=== PATIENT | male | born 1965 | race African-American/Black ===

== ENCOUNTER 2016-12-23 16:24 | Emergency (ER) | payer OTHER ==
[~2016-12-23] VITALS: Wt 113.4 kg
[~2016-12-23 16:24] MED LIST: AMOXICILLIN500 MG PO
[2016-12-23] MEDS ORDERED: PROPRANOLOL HYD80 MG PO (16:35)
[2016-12-23] MEDS ORDERED: NAPROXEN500 MG PO (16:35)
== END 2016-12-23 17:16 | disposition home or self-care (01) ==
LOC: ED 16:24
DX: T26.11XA Burn of cornea and conjunctival sac, right eye, initial encounter (principal); T26.12XA Burn of cornea and conjunctival sac, left eye, initial encounter; F17.200 Nicotine dependence, unspecified, uncomplicated; Z88.6 Allergy status to analgesic agent; X10.2XXA Contact with fats and cooking oils, initial encounter; Y93.G3 Activity, cooking and baking; Y92.9 Unspecified place or not applicable; Y99.9 Unspecified external cause status

== ENCOUNTER 2019-02-01 07:19 | Emergency (ER) | payer OTHER ==
[~2019-02-01] VITALS: Ht 182.8 cm; Wt 104.3 kg
[~2019-02-01 07:19] MED LIST changes: +NAPROXEN500 MG PO; +PROPRANOLOL HYD80 MG PO
[2019-02-01] MEDS ORDERED: LISINOPRIL20 MG PO (07:30)
[2019-02-01] MEDS ORDERED: TYLENOL325 M1 PO (09:17)
[2019-02-01] MEDS ORDERED: BACITRACIN 500U30 GM OPH (09:17)
[2019-02-01] MEDS ORDERED: NAPROSYN500 MG PO (09:17)
[2019-02-01] MEDS ORDERED: CEPHALEXIN500 M1 PO (09:17)
== END 2019-02-01 10:32 | disposition home or self-care (01) ==
LOC: ED 07:19
DX: S61.412A Laceration without foreign body of left hand, initial encounter (principal); S61.411A Laceration without foreign body of right hand, initial encounter; Z88.6 Allergy status to analgesic agent; Z79.899 Other long term (current) drug therapy; W26.8XXA Contact with other sharp object(s), not elsewhere classified, initial encounter; Y93.89 Activity, other specified; Y92.69 Other specified industrial and construction area as the place of occurrence of the external cause; Y99.8 Other external cause status

== ENCOUNTER 2019-07-26 21:27 | Emergency (ER) | payer SELFPAY ==
[~2019-07-26] VITALS: Ht 177.8 cm; Wt 113.4 kg
[~2019-07-26 21:27] MED LIST changes: +BACITRACIN 500U30 GM OPH; +CEPHALEXIN500 M1 PO; +LISINOPRIL20 MG PO; +NAPROSYN500 MG PO; +TYLENOL325 M1 PO
[2019-07-26 21:44] LABS: BASO # 0.1 10*3/uL (0.0-0.1); BASO % 0.5 % (0.0-1.0); EOS % 0.4 % (1.0-4.0); HEMATOCRIT 45.4 % (42.0-52.0); LYMPH # 1.5 10*3/uL (1.3-4.4); LYMPH % 14.3 % (27.0-41.0); MEAN CELL VOLUME 88.5 fl (80.0-94.0); MEAN CORPUSCULAR HGB 29.2 pg (27.0-31.0); MEAN PLATELET VOLUME 9.8 fl (9.6-12.3); MONO # 0.8 10*3/uL (0.1-1.0); NEUT # 7.9 10*3/uL (2.3-7.9); NEUT % 76.5 % (47.0-73.0); PLATELET COUNT AUTOMATED 272 10*3/uL (130-400); RED BLOOD COUNT 5.13 10*6/uL (4.50-5.90); RED CELL DISTRI WIDTH 13.9 % (0-14.5); WHITE BLOOD COUNT 10.3 10*3/uL (4.8-10.8)
[2019-07-26 22:03] LABS: ALBUMIN 3.8 gm/dl (3.1-4.5); ALKALINE PHOSPHATASE 79 U/L (45-117); BUN 17 mg/dl (7-24); CHLORIDE 109 mmol/L (98-107); CREATININE 1.08 mg/dL (0.70-1.30); POTASSIUM 3.7 mmol/L (3.5-5.1); SGOT/AST 33 IU/L (3-35); SGPT/ALT 33 U/L (12-78); SODIUM 140 mmol/L (136-145); TOTAL PROTEIN 8.1 gm/dL (6.4-8.2)
[2019-07-26 22:06] LABS: ACT PARTIAL THROMBO TIME 26.2 SECONDS (20.0-32.1); INTERNATIONAL NORM RATIO 0.9 (2.0-3.5)
[2019-07-26 22:07] LABS: TROPONIN I < 0.015 ng/ml (<0.045)
== END 2019-07-27 00:45 ==
LOC: ED 21:27
PROVIDERS: Emergency Medicine Emergency Medical Services
DX: R07.9 Chest pain, unspecified (principal); R20.0 Anesthesia of skin; I25.2 Old myocardial infarction; I10 Essential (primary) hypertension; F17.200 Nicotine dependence, unspecified, uncomplicated; Z88.6 Allergy status to analgesic agent; Z79.899 Other long term (current) drug therapy

== ENCOUNTER 2021-02-11 13:33 | Emergency (ER) | payer OTHER ==
[~2021-02-11] VITALS: Wt 106.1 kg
[2021-02-11] MEDS ORDERED: CYCLOBENZAPRINE5 M3 PO ×2 (15:04)
[2021-02-11] MEDS ORDERED: PREDNISONE50 MG PO ×2 (15:04)
== END 2021-02-11 15:33 | disposition home or self-care (01) ==
LOC: ED 13:33
DX: M54.5 Low back pain (principal); M25.551 Pain in right hip; M25.552 Pain in left hip; Z88.6 Allergy status to analgesic agent; Z88.8 Allergy status to other drugs, medicaments and biological substances; Z79.2 Long term (current) use of antibiotics; Z79.899 Other long term (current) drug therapy; V28.4XXA Motorcycle driver injured in noncollision transport accident in traffic accident, initial encounter; Y93.89 Activity, other specified; Y92.488 Other paved roadways as the place of occurrence of the external cause; Y99.8 Other external cause status

== ENCOUNTER 2021-03-04 23:45 | Inpatient (IN) | payer OTHER ==
[~2021-03-04] VITALS: Ht 180.3 cm; Wt 109.9 kg
[~2021-03-04 23:45] MED LIST changes: +CYCLOBENZAPRINE5 M3 PO; +PREDNISONE50 MG PO
[2021-03-04 23:49] VITALS: BP 171/88
[2021-03-05 00:58] LABS: BASO % 0.5 % (0.0-1.0); EOS % 0.2 % (1.0-4.0); HEMATOCRIT 44.6 % (42.0-52.0); LYMPH # 1.7 10*3/uL (1.3-4.4); LYMPH % 20.8 % (27.0-41.0); MEAN CELL VOLUME 85.6 fl (80.0-94.0); MEAN CORPUSCULAR HGB 28.8 pg (27.0-31.0); MEAN CORPUSCULAR HGB CONC 33.6 g/dl (33.0-37.0); MEAN PLATELET VOLUME 10.2 fl (9.6-12.3); MONO # 0.5 10*3/uL (0.1-1.0); MONO % 5.5 % (3.0-9.0); NEUT % 72.9 % (47.0-73.0); PLATELET COUNT AUTOMATED 264 10*3/uL (130-400); RED BLOOD COUNT 5.21 10*6/uL (4.50-5.90); RED CELL DISTRI WIDTH 14.2 % (0-14.5); WHITE BLOOD COUNT 8.2 10*3/uL (4.8-10.8)
[2021-03-05 01:15] LABS: ALBUMIN 3.6 gm/dl (3.1-4.5); ALKALINE PHOSPHATASE 76 U/L (45-117); BUN 14 mg/dl (7-24); CHLORIDE 100 mmol/L (98-107); CREATININE 1.45 mg/dL (0.70-1.30); POTASSIUM 3.6 mmol/L (3.5-5.1); SGOT/AST 26 IU/L (3-35); SGPT/ALT 29 U/L (12-78); SODIUM 133 mmol/L (136-145); TOTAL PROTEIN 7.8 gm/dL (6.4-8.2)
[2021-03-05 01:16] LABS: TROPONIN I < 0.015 ng/ml (<0.045)
[2021-03-05 03:48] LABS: BILIRUBIN Negative (Negative); BLOOD Negative (Negative); CLARITY Clear (Clear); COLOR Yellow (Yellow); GLUCOSE Negative (Negative); KETONE Negative (Negative); LEUKO ESTERASE Negative (Negative); NITRITE Negative (Negative); PH 6.5 (4.5-8.0); SPECIFIC GRAVITY <= 1.005 (1.001-1.030); UROBILINOGEN 0.2 E.U./dl (0.0-1.0)
[2021-03-05 03:53] LABS: RBC 0-2 rbc/hpf (0-2); WBC 0-2 wbc/hpf (0-5)
[2021-03-05 03:57] LABS: URINE AMPHETAMINES < 1000 (1000ng/ml); URINE BARBITURATES < 200 (200ng/ml); URINE BENZODIAZEPINES < 200 (200ng/ml); URINE CANNABINOIDS (THC) > 50 (50ng/ml); URINE COCAINE > 300 (300ng/ml); URINE METHADONE < 300 (300ng/ml); URINE OPIATES < 300 (300ng/ml); URINE PHENCYCLIDINE < 25 (25ng/ml)
[2021-03-05 04:45] VITALS: BP 177/97
[2021-03-05 06:26] VITALS: BP 177/99
[2021-03-05 08:20] VITALS: BP 157/88
[2021-03-05 08:55] LABS: BUN 11 mg/dl (7-24); CHLORIDE 105 mmol/L (98-107); CREATININE 1.15 mg/dL (0.70-1.30); POTASSIUM 3.8 mmol/L (3.5-5.1); SODIUM 137 mmol/L (136-145)
[2021-03-05] MEDS ORDERED: AMLODIPINE BESYL5 MG PO (11:15)
== END 2021-03-05 16:05 | disposition home or self-care (01) | DRG 774 ==
LOC: ED 23:45 → 5E 03-05 04:27 → EDHOLD 03-05 04:27 → 5E 03-05 07:07
PROVIDERS: Emergency Medicine; Student in an Organized Health Care Education/Training Program; ADMIT Internal Medicine; ATTEND Internal Medicine
DX: F19.10 Other psychoactive substance abuse, uncomplicated (principal); R11.2 Nausea with vomiting, unspecified; F12.10 Cannabis abuse, uncomplicated; F17.200 Nicotine dependence, unspecified, uncomplicated; R73.9 Hyperglycemia, unspecified; E66.9 Obesity, unspecified; I10 Essential (primary) hypertension; F14.10 Cocaine abuse, uncomplicated; N17.0 Acute kidney failure with tubular necrosis; E87.1 Hypo-osmolality and hyponatremia; Z88.5 Allergy status to narcotic agent; Z88.8 Allergy status to other drugs, medicaments and biological substances; Z79.899 Other long term (current) drug therapy; Z71.6 Tobacco abuse counseling; Z68.33 Body mass index [BMI] 33.0-33.9, adult

== ENCOUNTER → 2021-04-02 | Outpatient (CLI) | payer OTHER ==
[~2021-04-02] MED LIST changes: +AMLODIPINE BESYL5 MG PO
== END | disposition home or self-care (01) ==
LOC: COVID19 14:56
PROVIDERS: ATTEND Internal Medicine
DX: Z11.52 Encounter for screening for COVID-19 (principal)

== ENCOUNTER 2023-05-01 13:54 | Emergency (ER) | payer OTHER ==
[~2023-05-01] VITALS: Ht 182.8 cm; Wt 113.4 kg
[2023-05-01] MEDS ORDERED: CYCLOBENZAPRINE10 MG PO (15:55)
== END 2023-05-01 16:01 | disposition home or self-care (01) ==
LOC: ED 13:54
DX: M54.16 Radiculopathy, lumbar region (principal); I10 Essential (primary) hypertension; E11.9 Type 2 diabetes mellitus without complications; Z88.5 Allergy status to narcotic agent; Z88.8 Allergy status to other drugs, medicaments and biological substances; F12.90 Cannabis use, unspecified, uncomplicated; F14.90 Cocaine use, unspecified, uncomplicated; F17.210 Nicotine dependence, cigarettes, uncomplicated

== ENCOUNTER 2023-05-14 05:58 | Emergency (ER) | payer OTHER ==
[~2023-05-14] VITALS: Ht 180.3 cm; Wt 113.4 kg
[~2023-05-14 05:58] MED LIST changes: +CYCLOBENZAPRINE10 MG PO
[2023-05-14 06:55] LABS: BASO # 0.1 10*3/uL (0.0-0.1); BASO % 0.8 % (0.0-1.0); EOS # 0.1 10*3/uL (0.0-0.4); EOS % 0.9 % (1.0-4.0); HEMATOCRIT 48.5 % (42.0-52.0); LYMPH # 1.6 10*3/uL (1.3-4.4); LYMPH % 21.2 % (27.0-41.0); MEAN CELL VOLUME 83.3 fl (80.0-94.0); MEAN CORPUSCULAR HGB 28.2 pg (27.0-31.0); MEAN CORPUSCULAR HGB CONC 33.8 g/dl (33.0-37.0); MEAN PLATELET VOLUME 10.2 fl (9.6-12.3); MONO # 0.4 10*3/uL (0.1-1.0); MONO % 5.8 % (3.0-9.0); NEUT # 5.3 10*3/uL (2.3-7.9); PLATELET COUNT AUTOMATED 284 10*3/uL (130-400); RED BLOOD COUNT 5.82 10*6/uL (4.50-5.90); RED CELL DISTRI WIDTH 14.4 % (0-14.5); WHITE BLOOD COUNT 7.4 10*3/uL (4.8-10.8)
[2023-05-14 07:04] LABS: ACT PARTIAL THROMBO TIME 28.5 SECONDS (20.0-32.1); INTERNATIONAL NORM RATIO 1.1 (2.0-3.5)
[2023-05-14 07:16] LABS: ALKALINE PHOSPHATASE 82 U/L (46-116); BUN 8 mg/dl (9-23); CHLORIDE 102 mmol/L (98-107); LIPASE 30 U/L (12-53); POTASSIUM 4.6 mmol/L (3.4-5.1); SGPT/ALT 20 U/L (5-49); TOTAL PROTEIN 8.4 gm/dL (6.0-8.0)
[2023-05-14] MEDS ORDERED: NORVASC10 MG PO (07:40)
[2023-05-14] MEDS ORDERED: MELOXICAM15 MG PO (07:40)
== END 2023-05-14 08:03 | disposition home or self-care (01) ==
LOC: ED 05:58
PROVIDERS: Internal Medicine
DX: I16.0 Hypertensive urgency (principal); M25.551 Pain in right hip; F17.210 Nicotine dependence, cigarettes, uncomplicated; E11.9 Type 2 diabetes mellitus without complications; Z88.5 Allergy status to narcotic agent; Z88.8 Allergy status to other drugs, medicaments and biological substances; Z98.890 Other specified postprocedural states; F14.90 Cocaine use, unspecified, uncomplicated; F12.90 Cannabis use, unspecified, uncomplicated